=== PATIENT | male | born 1990 | race Caucasian/White ===

== ENCOUNTER 2018-05-21 19:37 | Emergency (ER) | payer OTHER ==
[2018-05-21] MEDS: HYDROCODONE/APAP (10/325) TAB PO (21:01)
== END 2018-05-21 21:33 | disposition home or self-care (01) ==
LOC: FTE 19:37
DX: S00.81XA Abrasion of other part of head, initial encounter (principal); V49.40XA Driver injured in collision with unspecified motor vehicles in traffic accident, initial encounter
CPT/HCPCS: 99283; Z7502

== ENCOUNTER 2019-01-08 11:12 | Day surgery (SDC) | payer OTHER ==
[~2019-01-08 11:12] MED LIST: CEFAZOLIN 2 GM/50 ML (PMX) 50 ML IVPB; SOD CHLORIDE 0.9% 1,000 ML IV
[2019-01-08] MEDS ORDERED: PROPOFOL 20 ML (12:51)
[2019-01-08] MEDS ORDERED: CEFAZOLIN 1 GM INJ (12:51)
[2019-01-08] MEDS ORDERED: LIDOCAINE 2% (SDV) 5 ML INJ (12:51)
[2019-01-08] MEDS ORDERED: MEPERIDINE 25 MG INJ IV (13:00)
[2019-01-08] MEDS ORDERED: EPHEDrine SULFATE 50 MG/5 ML SYG IV (13:00)
[2019-01-08] MEDS ORDERED: MIDAZOLAM 1 MG/ML 2 ML INJ IV (13:00)
[2019-01-08] MEDS ORDERED: HYDROmorphONE 1 MG/5 ML IV SYRINGE IV ×3 (13:00)
[2019-01-08] MEDS ORDERED: FENTAnyl 50 MCG/ML VIAL IV ×3 (13:00)
[2019-01-08] MEDS ORDERED: DIPHENHYDRAMINE 50 MG INJ IV (13:00)
[2019-01-08] MEDS ORDERED: LABETALOL HCL 20MG INJ IV (13:00)
[2019-01-08] MEDS ORDERED: METOCLOPRAMIDE 10 MG INJ IV (13:00)
[2019-01-08] MEDS ORDERED: hydrALAzine 20 MG INJ IV (13:00)
[2019-01-08] MEDS ORDERED: OXYCODONE/ACETAMINOPHEN (5/325) TAB PO ×2 (13:00)
[2019-01-08] MEDS ORDERED: ONDANSETRON 4 MG INJ IV ×2 (13:00→13:30)
[2019-01-08] MEDS: BUPIVACAINE 0.5%/EPI (SDV) 30 ML INJ (13:09)
[2019-01-08] MEDS ORDERED: KETOROLAC 30 MG INJ IV (13:30)
[2019-01-08] MEDS ORDERED: IBUPROFEN 600 MG TAB PO (13:30)
== END 2019-01-08 15:30 | disposition home or self-care (01) ==
LOC: SDS 11:12
DX: N60.02 Solitary cyst of left breast (principal)
CPT/HCPCS: 19120; 88307